=== PATIENT | female | born 1945 | race Two or more races ===

== ENCOUNTER → 2019-06-27 | Outpatient (CLI) | payer OTHER | END | disposition home or self-care (01) | LOC: MRI 14:48 | DX: M25.561 Pain in right knee (principal) | CPT/HCPCS: 73721 ==

== ENCOUNTER 2019-08-02 14:50 | Outpatient (CLI) | payer OTHER | END 2019-08-02 14:53 | disposition home or self-care (01) | LOC: RAD 14:50 | DX: M25.561 Pain in right knee (principal); M25.562 Pain in left knee ==

== ENCOUNTER 2019-08-07 14:27 | Outpatient (CLI) | payer OTHER | END 2019-08-07 16:00 | disposition home or self-care (01) | LOC: NUCLEAR 14:27 | DX: M81.0 Age-related osteoporosis without current pathological fracture (principal) ==

== ENCOUNTER 2020-12-10 13:47 | Outpatient (CLI) | payer OTHER | END 2020-12-10 14:02 | disposition home or self-care (01) | LOC: MAMO-SONO 13:47 | PROVIDERS: ATTEND Internal Medicine Sports Medicine | DX: N64.59 Other signs and symptoms in breast (principal); Z12.31 Encounter for screening mammogram for malignant neoplasm of breast; Z87.898 Personal history of other specified conditions; E04.1 Nontoxic single thyroid nodule; E04.8 Other specified nontoxic goiter; E03.8 Other specified hypothyroidism ==